=== PATIENT | male | born 1965 | race Caucasian/White ===

== ENCOUNTER 2021-03-24 16:44 | Inpatient (IN) | payer OTHER ==
[~2021-03-24] VITALS: Ht 167.6 cm; Wt 58.5 kg
[~2021-03-24 16:44] MED LIST: B-1100 MG PO; FOLIC ACID1 MG PO; HABITROL 21 MG P1 EA TP; LOPRESSOR 25 MG25 MG PO; LORTAB 5-325 M1 EACH PO; LOVENOX SY40 MG/0.4 SQ; PERCOCET 5-3251 EACH PO; PERCOCET 7.5-31 EACH PO; THERAGRAN M TAB1 EA PO
[2021-03-24 18:01] LABS: HEMOGLOBIN 11.1 gm/dl (14.0-17.5); RED BLOOD COUNT 3.44 M/UL (4.20-5.50); WHITE BLOOD COUNT 16.5 K/UL (4.5-11.0)
[2021-03-24 18:13] LABS: BUN/CREATININE RATIO 19 (0-10)
[2021-03-25 06:38] LABS: HEMOGLOBIN 9.8 gm/dl (14.0-17.5); WHITE BLOOD COUNT 15.3 K/UL (4.5-11.0)
[2021-03-25 06:44] LABS: RED BLOOD COUNT 3.05 M/UL (4.20-5.50)
[2021-03-25 07:10] LABS: BUN/CREATININE RATIO 20 (0-10)
--- NOTE | 2021-03-25 11:09 | NUR ---
PATIENT RETURNED FROM PACU AT THIS TIME. ALERT, VERBAL, VITAL SIGNS WITHIN NORMAL LIMITS. NO ACUTE DISTRESS NOTED.
[2021-03-25] MEDS ORDERED: ADULT LOW DOSE81 MG PO (14:36)
[2021-03-26 08:19] LABS: RED BLOOD COUNT 2.78 M/UL (4.20-5.50); WHITE BLOOD COUNT 12.9 K/UL (4.5-11.0)
[2021-03-26 08:39] LABS: BUN/CREATININE RATIO 15 (0-10)
[2021-03-27 10:08] LABS: HEMOGLOBIN 9.4 gm/dl (14.0-17.5); RED BLOOD COUNT 2.94 M/UL (4.20-5.50); WHITE BLOOD COUNT 13.5 K/UL (4.5-11.0)
[2021-03-27 10:45] LABS: BUN/CREATININE RATIO 17 (0-10)
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
[2021-03-27 19:54] LABS: HEMOGLOBIN 8.6 gm/dl (14.0-17.5); RED BLOOD COUNT 2.69 M/UL (4.20-5.50)
[2021-03-27 19:56] LABS: WHITE BLOOD COUNT 18.6 K/UL (4.5-11.0)
[2021-03-28 05:27] LABS: BUN/CREATININE RATIO 22 (0-10)
[2021-03-28 15:11] LABS: HEMOGLOBIN 8.9 gm/dl (14.0-17.5); RED BLOOD COUNT 2.72 M/UL (4.20-5.50)
[2021-03-28 15:13] LABS: WHITE BLOOD COUNT 10.9 K/UL (4.5-11.0)
[2021-03-29 05:16] LABS: HEMOGLOBIN 8.5 gm/dl (14.0-17.5); RED BLOOD COUNT 2.64 M/UL (4.20-5.50)
[2021-03-29 05:37] LABS: WHITE BLOOD COUNT 14.4 K/UL (4.5-11.0)
[2021-03-29 05:53] LABS: BUN/CREATININE RATIO 28 (0-10)
[2021-03-30 07:19] LABS: HEMOGLOBIN 8.3 gm/dl (14.0-17.5); RED BLOOD COUNT 2.58 M/UL (4.20-5.50); WHITE BLOOD COUNT 13.2 K/UL (4.5-11.0)
[2021-03-30 07:28] LABS: BUN/CREATININE RATIO 24 (0-10)
[2021-03-31 07:37] LABS: HEMOGLOBIN 8.4 gm/dl (14.0-17.5); RED BLOOD COUNT 2.62 M/UL (4.20-5.50); WHITE BLOOD COUNT 10.8 K/UL (4.5-11.0)
[2021-03-31 09:14] LABS: BUN/CREATININE RATIO 24 (0-10)
[2021-04-01 07:57] LABS: HEMOGLOBIN 8.3 gm/dl (14.0-17.5); RED BLOOD COUNT 2.59 M/UL (4.20-5.50); WHITE BLOOD COUNT 10.3 K/UL (4.5-11.0)
[2021-04-01 08:10] LABS: BUN/CREATININE RATIO 21 (0-10)
[2021-04-03 07:14] LABS: HEMOGLOBIN 8.6 gm/dl (14.0-17.5); RED BLOOD COUNT 2.69 M/UL (4.20-5.50); WHITE BLOOD COUNT 8.7 K/UL (4.5-11.0)
[2021-04-03 07:43] LABS: BUN/CREATININE RATIO 18 (0-10)
[2021-04-04 06:21] LABS: HEMOGLOBIN 8.1 gm/dl (14.0-17.5); RED BLOOD COUNT 2.56 M/UL (4.20-5.50); WHITE BLOOD COUNT 9.5 K/UL (4.5-11.0)
[2021-04-04 06:45] LABS: BUN/CREATININE RATIO 19 (0-10)
[2021-04-05 08:07] LABS: HEMOGLOBIN 8.4 gm/dl (14.0-17.5); RED BLOOD COUNT 2.61 M/UL (4.20-5.50); WHITE BLOOD COUNT 10.8 K/UL (4.5-11.0)
[2021-04-05 08:32] LABS: BUN/CREATININE RATIO 18 (0-10)
[2021-04-06 08:59] LABS: RED BLOOD COUNT 2.78 M/UL (4.20-5.50); WHITE BLOOD COUNT 9.5 K/UL (4.5-11.0)
[2021-04-06 09:35] LABS: BUN/CREATININE RATIO 18 (0-10)
[2021-04-06] MEDS ORDERED: LOPRESSOR 25 MG25 MG PO (10:17)
[2021-04-06] MEDS ORDERED: LIBRIUM 5 MG CAP5 MG PO ×2 (10:17→10:39)
[2021-04-06] MEDS ORDERED: ELIQUIS 2.5 MG2.5 MG PO (10:17)
[2021-04-06] MEDS ORDERED: HYDROCODON-ACE1 EAC2 PO (10:17)
== END 2021-04-06 14:15 | disposition home or self-care (01) | DRG 488 ==
LOC: ER1 16:44 → CCU 18:25 → M/S 18:25 → CDU 18:25 → M/S 23:26 → CCU 03-27 22:34 → M/S 03-29 13:13
PROVIDERS: Emergency Medicine; Internal Medicine; Physician Assistant Medical; ADMIT Internal Medicine Infectious Disease
PROC: HZ2ZZZZ Detoxification Services for Substance Abuse Treatment (ICD-10-PCS; principal; 2021-03-24)
PROC: 0S9C0ZZ Drainage of Right Knee Joint, Open Approach (ICD-10-PCS; 2021-03-25)
PROC: 0QS Lower Bones, Reposition (ICD-10-PCS; 2021-03-27)
DX: S82.101A Unspecified fracture of upper end of right tibia, initial encounter for closed fracture (principal); G92 Toxic encephalopathy; D62 Acute posthemorrhagic anemia; F10.239 Alcohol dependence with withdrawal, unspecified; W01.0XXA Fall on same level from slipping, tripping and stumbling without subsequent striking against object, initial encounter; J44.9 Chronic obstructive pulmonary disease, unspecified; I10 Essential (primary) hypertension; E83.42 Hypomagnesemia; M25.461 Effusion, right knee; D47.3 Essential (hemorrhagic) thrombocythemia; F17.210 Nicotine dependence, cigarettes, uncomplicated; Z83.3 Family history of diabetes mellitus; Z72.89 Other problems related to lifestyle; Z79.899 Other long term (current) drug therapy; Z79.82 Long term (current) use of aspirin; S83.91XA Sprain of unspecified site of right knee, initial encounter
CPT/HCPCS: 36415; 71045; 72170; 73552; 73560; 73562; 73590; 73600; 73700; 76000; 80048; 80053; 83735; 84100; 85025; 85027; 85652; 86140; 86850; 86900; 86901; 93005; 96374; 96375; 97110; 97110-GP-CQ; 97162; 97166; 97530-GP-CQ; 97535; 99285; C1713; J0690; J1100; J1630; J2001; J2060; J2250; J2270; J2370; J2405; J2704; J3010; J7120; U0002

== ENCOUNTER 2022-03-31 00:14 | Inpatient (IN) | payer OTHER ==
[~2022-03-31] VITALS: Ht 167.6 cm; Wt 57.2 kg
[~2022-03-31 00:14] MED LIST changes: +ADULT LOW DOSE81 MG PO; +CLINDAMYCIN HC300 MG PO; +ELIQUIS 2.5 MG2.5 MG PO; +HYDROCODON-ACE1 EAC2 PO; +LIBRIUM 5 MG CAP5 MG PO; +LOVENOX40 MG/0.4 SQ
[2022-03-31 01:36] LABS: RED BLOOD COUNT 3.54 M/UL (4.20-5.50); WHITE BLOOD COUNT 14.9 K/UL (4.5-11.0)
[2022-03-31 02:23] LABS: BUN/CREATININE RATIO 17 (0-10)
[2022-03-31] MEDS ORDERED: METOPROLOL TART25 MG PO (10:27)
[2022-04-01 03:00] LABS: HEMOGLOBIN 8.9 gm/dl (14.0-17.5); RED BLOOD COUNT 3.45 M/UL (4.20-5.50)
[2022-04-01 03:01] LABS: WHITE BLOOD COUNT 10.9 K/UL (4.5-11.0)
[2022-04-01 03:30] LABS: BUN/CREATININE RATIO 21 (0-10)
--- NOTE | 2022-04-01 07:49 | NUR ---
PATIENT WENT DOWN TO SURGERY
--- NOTE | 2022-04-01 10:36 | NUR ---
PATIENT ARRIVED BACK FROM SURGERY.
[2022-04-02 05:41] LABS: HEMOGLOBIN 7.5 gm/dl (14.0-17.5)
[2022-04-02 05:45] LABS: RED BLOOD COUNT 2.97 M/UL (4.20-5.50); WHITE BLOOD COUNT 14.4 K/UL (4.5-11.0)
[2022-04-02 06:37] LABS: BUN/CREATININE RATIO 20 (0-10)
[2022-04-03 03:04] LABS: HEMOGLOBIN 7.3 gm/dl (14.0-17.5); RED BLOOD COUNT 2.84 M/UL (4.20-5.50); WHITE BLOOD COUNT 13.1 K/UL (4.5-11.0)
[2022-04-03 03:31] LABS: BUN/CREATININE RATIO 20 (0-10)
[2022-04-03] MEDS ORDERED: ELIQUIS 2.5 MG2.5 MG PO (10:57)
[2022-04-03] MEDS ORDERED: FERROUS SULFAT325 M2 PO (10:59)
[2022-04-03] MEDS ORDERED: TAB-A-VITE TA400 MC1 PO (11:01)
== END 2022-04-03 15:25 | disposition home or self-care (01) | DRG 481 ==
LOC: ER1 00:14 → M/S 03:05 → CDU 03:05 → M/S 04:48
PROVIDERS: Family Medicine; Internal Medicine; Orthopaedic Surgery; ADMIT Internal Medicine
PROC: 0QS604Z Reposition Right Upper Femur with Internal Fixation Device, Open Approach (ICD-10-PCS; principal; 2022-04-01 07:46)
DX: S72.401A Unspecified fracture of lower end of right femur, initial encounter for closed fracture (principal); D62 Acute posthemorrhagic anemia; F10.10 Alcohol abuse, uncomplicated; I10 Essential (primary) hypertension; W18.30XA Fall on same level, unspecified, initial encounter; Z96.698 Presence of other orthopedic joint implants; E83.42 Hypomagnesemia; D75.839 Thrombocytosis, unspecified; J44.9 Chronic obstructive pulmonary disease, unspecified; F17.210 Nicotine dependence, cigarettes, uncomplicated; Z79.01 Long term (current) use of anticoagulants; Z79.82 Long term (current) use of aspirin; Z86.718 Personal history of other venous thrombosis and embolism; Z98.890 Other specified postprocedural states; Z83.3 Family history of diabetes mellitus
CPT/HCPCS: 36415; 71045; 73502; 73552; 73560; 73562; 73590; 73700; 76000; 80048; 80053; 82550; 82553; 84484; 85025; 85610; 93005; 94760; 96374; 96375; 96376; 97116; 97116-GP-CQ; 97161; 97530-GP-CQ; 99285; C1713; G0480; J0171; J0690; J1100; J1170; J1644; J1650; J2001; J2270; J2370; J2405; J2704; J2795; J3010; J3411; J3475; J7030; P9045